=== PATIENT | female | born 1965 | race Caucasian/White ===

== ENCOUNTER 2016-12-27 15:37 | Emergency (ER) | payer BC, OTHER ==
[2016-12-27 15:43] VITALS: BP 175/86; PULSE 82; RESP 18; TEMP 97.5
[2016-12-27] MEDS ORDERED: DIPH,PERTUS(ACELL)TETVAC-LF 0.5 ML VIAL IM ONE (16:12)
--- NOTE | 2016-12-27 16:15 | ED ---
General Adult HPI - General Chief complaint: Eye Problems Stated complaint: IHS/ Eye Problem Time Seen by Provider: 12/27/16 15:51 Source: patient, RN notes reviewed Mode of arrival: ambulatory - History of Present Illness Initial comments: Patient 51-year-old female who presents emergency room today with chief complaint of increased irritation and foreign body sensation to the left eye times one day. Does admit that she was at work yesterday when she states she believes she got something in her eye. 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 Denies any specific injury or trauma but states she did go to the bathroom to wash out. States she did feel better. She is still feeling a little irritating the upper lip. Patient denies any other complaints associated symptoms. Patient denies any recent fever, chills, shortness of breath, chest pain, back pain, abdominal pain, nausea or vomiting, numbness or tingling, dysuria or hematuria, constipation or diarrhea, headaches or visual changes, or any other complaints. - Related Data Previous Rx's Medication Instructions Recorded Tobramycin 0.3% Ophth Soln [Tobrex 1 - 2 drop LEFT EYE QID 7 Days 12/27/16 0.3% Ophth Soln] Allergies Allergy/AdvReac Type Severity Reaction Status Date / Time No Known Allergies Allergy Verified 12/27/16 15:43 Review of Systems ROS Statement: Those systems with pertinent positive or pertinent negative responses have been documented in the HPI. ROS Other: All systems not noted in ROS Statement are negative. Past Medical History Past Medical History: Coronary Artery Disease (CAD), Hypertension, Myocardial Infarction ([place]) History of Any Multi-Drug Resistant Organisms: None Reported Past Surgical History: Coronary Bypass/CABG Past Psychological History: No Psychological Hx Reported Smoking Status: Current every day smoker Past Alcohol Use History: Occasional Past Drug Use History: None Reported General Exam - General Exam Comments Initial Comments: General: The patient is awake and alert, in no distress, and does not appear acutely ill. Eye: Pupils are equal, round and reactive to light, extra-ocular movements are intact. No nystagmus. There is normal conjunctiva bilaterally. No signs of icterus. Ears, nose, mouth and throat: There are moist mucous membranes and no oral lesions. Neck: The neck is supple, there is no tenderness or JVD. Cardiovascular: There is a regular rate and rhythm. No murmur, rub or gallop is appreciated. Respiratory: Lungs are clear to auscultation, respirations are non-labored, breath sounds are equal. No wheezes, stridor, rales, or rhonchi. Musculoskeletal: Normal ROM, no tenderness. Strength 5/5. Sensation intact. Pulses equal bilaterally 2+. Neurological: A&O x 3. CN II-XII intact, There are no obvious motor or sensory deficits. Coordination appears grossly intact. Speech is normal. Skin: Skin is warm and dry and no rashes or lesions are noted. Psychiatric: Cooperative, appropriate mood & affect, normal judgment. Course Vital Signs 12/27/16 15:39 Temperature 97.5 F L Pulse Rate 82 Respiratory 18 Rate Blood Pressure 175/86 O2 Sat by Pulse 99 Oximetry Procedures - Procedures Initial comment: Patient's left eye anesthetized locally with proparacaine. This did relieve her symptoms. Patient's left eye was stained and checked underneath [place] lamp revealing small corneal abrasion the upper [place]. Lids inverted no foreign bodies appreciated. Lids were swept with cotton tip. Medical Decision Making - Medical Decision Making Patient's will be started on antibiotic drops. Advised follow-up with ophthalmology over the next 2 days symptoms persist. Patient's tetanus updated here in the emergency room. Disposition Clinical Impression: Corneal abrasion Disposition: HOME SELF-CARE Condition: Good Instructions: Corneal Abrasion (ED) Additional Instructions: Please use medication as discussed. Please follow-up with family doctor in the next 2 days of symptoms have not improved. Please return to emergency room if the symptoms increase or worsen or for any other concerns. Prescriptions: Tobramycin 0.3% Ophth Soln [Tobrex 0.3% Ophth Soln] 1 - 2 drop LEFT EYE QID 7 Days Referrals: None,Stated [Primary Care Provider] - 1-2 days Anton Galarza MD [STAFF PHYSICIAN] - 1-2 days Time of Disposition: 16:14
== END 2016-12-27 16:33 | disposition home or self-care (01) ==
LOC: EC 15:37
DX: S05.02XA Injury of conjunctiva and corneal abrasion without foreign body, left eye, initial encounter (principal); F17.200 Nicotine dependence, unspecified, uncomplicated; Z23 Encounter for immunization; X58.XXXA Exposure to other specified factors, initial encounter; Y99.0 Civilian activity done for income or pay
CPT/HCPCS: 90471; 90715; 99283

== ENCOUNTER 2017-06-02 15:46 | Emergency (ER) | payer BC, OTHER ==
--- NOTE | 2017-06-02 17:33 | XR ---
EXAMINATION TYPE: XR ribs LT w pa chest xray DATE OF EXAM: 06/02/2017 COMPARISON: 11/19/2010 HISTORY: Fell one day ago. Chest pain. TECHNIQUE: 5 views FINDINGS: Heart and mediastinum are normal. There are sternal wires. Lungs are clear of infiltrate. T here is no sign of pleural effusion or pneumothorax. There is nondisplaced fracture of the lateral le ft ninth rib. There is fracture of the anterior end of the left eighth rib. IMPRESSION: Acute fracture left ninth rib. No cardiopulmonary disease. Fracture anterior tip of left eighth rib.
[2017-06-02] MEDS ORDERED: ACET/COD 300 MG/30 MG STARTER PACK 6 TAB BTL PO STA (17:41)
--- NOTE | 2017-06-02 17:46 | ED ---
Chest Pain HPI - General Chief Complaint: Chest Pain Stated Complaint: Rib Pain Time Seen by Provider: 06/02/17 16:59 Source: patient, RN notes reviewed, old records reviewed Mode of arrival: ambulatory Limitations: no limitations - History of Present Illness Initial Comments: This is a 52-year-old female presenting to the emergency departmentWith a chief complaint of left sided rib pain.Patient reports that she tripped in the middle of the night. She reports she landed on her dresser.Patient is concerned she has fractured ribs. She reports that she has some bruising over the leftSide of her rib cage.She denies any shortness of breath.She reports thatShe does have history of open heart surgery.She denies anyAbdominal pain, Blood in her urine, Diarrhea orConstipation, or headache. - Related Data Home Medications Medication Instructions Recorded Confirmed Aspirin EC [Ecotrin Low Dose] 81 mg PO DAILY 06/02/17 06/02/17 Previous Rx's Medication Instructions Recorded HYDROcodone/APAP 5-325MG [[place] 1 tab PO Q6HR PRN #15 tab 06/02/17 5-325] Allergies Allergy/AdvReac Type Severity Reaction Status Date / Time No Known Allergies Allergy Verified 06/02/17 17:02 Review of Systems ROS Statement: Those systems with pertinent positive or pertinent negative responses have been documented in the HPI. ROS Other: All systems not noted in ROS Statement are negative. Past Medical History Past Medical History: Coronary Artery Disease (CAD), Hypertension, Myocardial Infarction ([place]) History of Any Multi-Drug Resistant Organisms: None Reported Past Surgical History: Coronary Bypass/CABG Past Psychological History: No Psychological Hx Reported Smoking Status: Current every day smoker Past Alcohol Use History: Occasional Past Drug Use History: None Reported General Exam - General Exam Comments Initial Comments: Well appearing 52 year old female, no acute distress. Limitations: no limitations General appearance: alert, in no apparent distress Head exam: Present: atraumatic, normocephalic, normal inspection Eye exam: Present: normal appearance, PERRL, EOMI. Absent: scleral icterus, conjunctival injection, periorbital swelling ENT exam: Present: normal exam, mucous membranes moist Neck exam: Present: normal inspection. Absent: tenderness, meningismus, lymphadenopathy Respiratory exam: Present: chest wall tenderness (left sided rib pain over 7-10 ribs. Significant brusing noted. ). Absent: normal lung sounds bilaterally ( mildly diminished left sided lung sounds ), respiratory distress, wheezes, rales , rhonchi, stridor Cardiovascular Exam: Present: regular rate, normal rhythm, normal heart sounds. Absent: systolic murmur, diastolic murmur, rubs, gallop, clicks GI/Abdominal exam: Present: soft, normal bowel sounds. Absent: distended, tenderness, guarding, rebound, rigid Extremities exam: Present: normal inspection, full ROM, normal capillary refill. Absent: tenderness, pedal edema, joint swelling, calf tenderness Back exam: Present: normal inspection Neurological exam: Present: alert, oriented X3, CN II-XII intact Psychiatric exam: Present: normal affect, normal mood Skin exam: Present: warm, dry, intact, normal color. Absent: rash Course Vital Signs 06/02/17 06/02/17 15:48 18:12 Temperature 99.1 F 98.2 F Pulse Rate 103 H 75 Respiratory 18 20 Rate Blood Pressure 157/92 140/56 O2 Sat by Pulse 98 99 Oximetry Chest Pain MDM - MDM This is a 52-year-old female presenting to the emergency departmentWith a chief complaint of left sided rib pain.Patient reports that she tripped in the middle of the night. She reports she landed on her dresser.Patient is concerned she has fractured ribs. Patient has large hematoma over left rib cage. Patient CXR and rib xray obtained. There is an Acute fracture of the ninth rib. No cardiomegaly disease. Lungs are clear infiltrate. No sign of pleural fusion abnormal effects. Also evidence of anterior tip of the eighth rib. Paitent was given pain medication and advised on incentive spirometry. Patient agrees to treatment plan and will comply. REturn parameters discussed. Also discussed follow up with PCP. Disposition Clinical Impression: Left rib fracture Disposition: HOME SELF-CARE Condition: Good Instructions: Rib Fracture (ED) Additional Instructions: Patient advised to take pain medication as directed. Return to the emergency department if any alarming signs or symptoms occur. Prescriptions: HYDROcodone/APAP 5-325MG [[place] 5-325] 1 tab PO Q6HR PRN #15 tab PRN Reason: Pain Referrals: None,Stated [Primary Care Provider] - 1-2 days Time of Disposition: 17:48
[2017-06-02 18:13] VITALS: BP 140/56; PULSE 75; RESP 20; TEMP 98.2
== END 2017-06-02 18:12 | disposition home or self-care (01) ==
LOC: EC 15:46
DX: S22.32XA Fracture of one rib, left side, initial encounter for closed fracture (principal); I25.2 Old myocardial infarction; I25.10 Atherosclerotic heart disease of native coronary artery without angina pectoris; F17.200 Nicotine dependence, unspecified, uncomplicated; Z79.82 Long term (current) use of aspirin; W01.190A Fall on same level from slipping, tripping and stumbling with subsequent striking against furniture, initial encounter
CPT/HCPCS: 99284

== ENCOUNTER 2017-12-03 09:01 | Emergency (ER) | payer BC ==
[2017-12-03] MEDS ORDERED: ONDANSETRON 4 MG/2 ML VIAL IVP STA (09:20)
[2017-12-03] MEDS ORDERED: SODIUM CHLORIDE 0.9% 1,000 ML IV STA (09:20)
[2017-12-03 09:32] LABS: Basophils % (A) 1 %; Eosinophils # (A) 0.1 k/uL (0-0.7); Eosinophils % (A) 1 %; HCT 43.2 % (34.0-46.0); HGB 14.6 gm/dL (11.4-16.0); Lymphocytes # (A) 1.5 k/uL (1.0-4.8); Lymphocytes % (A) 18 %; MCH 30.9 pg (25.0-35.0); MCHC 33.8 g/dL (31.0-37.0); MCV 91.4 fL (80.0-100.0); Mean Platelet Volume 7.3; Monocytes # (A) 0.3 k/uL (0-1.0); Monocytes % (A) 4 %; Neutrophils # (A) 6.3 k/uL (1.3-7.7); Neutrophils % (A) 76 %; Platelet Count 253 k/uL (150-450); RBC 4.73 m/uL (3.80-5.40); WBC 8.3 k/uL (3.8-10.6)
--- NOTE | 2017-12-03 09:32 | ED ---
General Adult HPI - General Chief complaint: Nausea/Vomiting/Diarrhea Stated complaint: Vomiting Time Seen by Provider: 12/03/17 09:20 Source: patient, RN notes reviewed Mode of arrival: ambulatory Limitations: no limitations - History of Present Illness Initial comments: Patient's a 52-year-old female who presents emergency room today with chief complaint of symptoms of nausea vomiting over the last 2 days. She does admit that her daughter was diagnosed with influenza recently. She states that she's also had some cough some congestion. Doesn't some sputum production. Patient does admit to some body aches. Patient denies any recent shortness of breath, chest pain, back pain, abdominal pain, nausea or vomiting, numbness or tingling , headaches or visual changes, or any other complaints. - Related Data Home Medications Medication Instructions Recorded Confirmed Aspirin EC [Ecotrin Low Dose] 81 mg PO DAILY 06/02/17 12/03/17 Naproxen Sodium [Aleve] 220 mg PO DAILY PRN 12/03/17 12/03/17 Previous Rx's Medication Instructions Recorded Ondansetron Odt [Zofran ODT] 4 mg PO Q8HR PRN #20 tab 12/03/17 Oseltamivir [Tamiflu] 75 mg PO Q12HR 5 Days cap 12/03/17 Allergies Allergy/AdvReac Type Severity Reaction Status Date / Time No Known Allergies Allergy Verified 12/03/17 09:24 Review of Systems ROS Statement: Those systems with pertinent positive or pertinent negative responses have been documented in the HPI. ROS Other: All systems not noted in ROS Statement are negative. Past Medical History Past Medical History: Coronary Artery Disease (CAD), Hypertension, Myocardial Infarction ([place]) History of Any Multi-Drug Resistant Organisms: None Reported Past Surgical History: Coronary Bypass/CABG Past Psychological History: No Psychological Hx Reported Smoking Status: Current every day smoker Past Alcohol Use History: Occasional Past Drug Use History: None Reported General Exam - General Exam Comments Initial Comments: General: The patient is awake and alert, in no distress, and does not appear acutely ill. Eye: Pupils are equal, round and reactive to light, extra-ocular movements are intact. No nystagmus. There is normal conjunctiva bilaterally. No signs of icterus. Ears, nose, mouth and throat: There are moist mucous membranes and no oral lesions. Neck: The neck is supple, there is no tenderness or JVD. Cardiovascular: There is a regular rate and rhythm. No murmur, rub or gallop is appreciated. Respiratory: Lungs are clear to auscultation, respirations are non-labored, breath sounds are equal. No wheezes, stridor, rales, or rhonchi. Gastrointestinal: Soft, non-distended, non-tender abdomen without masses or organomegaly noted. There is no rebound or guarding present. No CVA tenderness. Bowel sounds are unremarkable. Musculoskeletal: Normal ROM, no tenderness. Strength 5/5. Sensation intact. Pulses equal bilaterally 2+. Neurological: A&O x 3. CN II-XII intact, There are no obvious motor or sensory deficits. Coordination appears grossly intact. Speech is normal. Skin: Skin is warm and dry and no rashes or lesions are noted. Psychiatric: Cooperative, appropriate mood & affect, normal judgment. Limitations: no limitations Course Vital Signs 12/03/17 09:07 Temperature 97 F L Pulse Rate 100 Respiratory 16 Rate Blood Pressure 173/86 O2 Sat by Pulse 100 Oximetry Medical Decision Making - Medical Decision Making Patient reexamined at this time shows no signs of distress. She is resting comfortably in the stretcher. Patient labs been reviewed and are unremarkable. Patient's wishes chest x-ray is negative. Patient does admit that her daughter was recently diagnosed with influenza. Patient symptoms started 2 days ago started on Tamiflu. Also given Zofran for her symptoms of nausea. Denies to follow-up family doctor next 2 days or return here to the emergency room symptoms increase or worsen. Patient states understanding and is in agreement. - Lab Data Result diagrams: 12/03/17 09:25 12/03/17 09:25 Lab Results 12/03/17 12/03/17 Range/Units 09:25 09:25 WBC 8.3 (3.8-10.6) k/uL RBC 4.73 (3.80-5.40) m/uL Hgb 14.6 (11.4-16.0) gm/dL Hct 43.2 (34.0-46.0) % MCV 91.4 (80.0-100.0) fL MCH 30.9 (25.0-35.0) pg MCHC 33.8 (31.0-37.0) g/dL RDW 13.0 (11.5-15.5) % Plt Count 253 (150-450) k/uL Neutrophils % 76 % Lymphocytes % 18 % Monocytes % 4 % Eosinophils % 1 % Basophils % 1 % Neutrophils # 6.3 (1.3-7.7) k/uL Lymphocytes # 1.5 (1.0-4.8) k/uL Monocytes # 0.3 (0-1.0) k/uL Eosinophils # 0.1 (0-0.7) k/uL Basophils # 0.0 (0-0.2) k/uL Sodium 139 (137-145) mmol/L Potassium 4.4 (3.5-5.1) mmol/L Chloride 106 (98-107) mmol/L Carbon Dioxide 21 L (22-30) mmol/L Anion Gap 12 mmol/L BUN 14 (7-17) mg/dL Creatinine 0.77 (0.52-1.04) mg/dL Est GFR (MDRD) Af Amer >60 (>60 ml/min/1.73 sqM) Est GFR (MDRD) Non-Af >60 (>60 ml/min/1.73 sqM) Glucose 111 H (74-99) mg/dL Calcium 10.0 (8.4-10.2) mg/dL Total Bilirubin 0.4 (0.2-1.3) mg/dL AST 21 (14-36) U/L ALT 35 (9-52) U/L Alkaline Phosphatase 118 (38-126) U/L Total Protein 6.9 (6.3-8.2) g/dL Albumin 4.2 (3.5-5.0) g/dL Disposition Clinical Impression: Nausea & vomiting, Influenza Disposition: HOME SELF-CARE Condition: Good Instructions: Acute Nausea and Vomiting (ED) Additional Instructions: Please use medication as discussed. Please follow-up with family doctor in the next 2 days of symptoms have not improved. Please return to emergency room if the symptoms increase or worsen or for any other concerns. Prescriptions: Ondansetron Odt [Zofran ODT] 4 mg PO Q8HR PRN #20 tab PRN Reason: Nausea Oseltamivir [Tamiflu] 75 mg PO Q12HR 5 Days cap Referrals: None,Stated [Primary Care Provider] - 1-2 days Time of Disposition: 10:25
[2017-12-03 09:43] LABS: ALT 35 U/L (9-52); AST 21 U/L (14-36); Albumin 4.2 g/dL (3.5-5.0); Alkaline Phosphatase 118 U/L (38-126); Anion Gap 12 mmol/L; Blood Urea Nitrogen 14 mg/dL (7-17); Carbon Dioxide 21 mmol/L (22-30); Chloride 106 mmol/L (98-107); Glucose 111 mg/dL (74-99); Potassium 4.4 mmol/L (3.5-5.1); Sodium 139 mmol/L (137-145); Total Bilirubin 0.4 mg/dL (0.2-1.3); Total Protein 6.9 g/dL (6.3-8.2)
--- NOTE | 2017-12-03 10:11 | XR ---
EXAMINATION TYPE: XR chest 2V DATE OF EXAM: 12/03/2017 COMPARISON: Prior chest x-ray 06/02/2017 HISTORY: Cough, nausea and vomiting and headache TECHNIQUE: Frontal and lateral views of the chest are obtained. FINDINGS: There is no focal air space opacity, pleural effusion, or pneumothorax seen. The cardiac silhouette size is within normal limits. There is bronchial wall thickening. Patient is post median sternotomy. Apical thickening is stable. Prominent lung volumes may be indicative of COPD. The osseo us structures are intact. IMPRESSION: Correlate for bronchitis, reactive airways disease. Follow-up as indicated.
[2017-12-03 10:39] VITALS: BP 170/80; PULSE 86; RESP 18; TEMP 97
== END 2017-12-03 10:38 | disposition home or self-care (01) ==
LOC: EC 09:01
DX: R11.2 Nausea with vomiting, unspecified (principal); J11.1 Influenza due to unidentified influenza virus with other respiratory manifestations; F17.200 Nicotine dependence, unspecified, uncomplicated; Z79.82 Long term (current) use of aspirin
CPT/HCPCS: 36415; 80053; 85025; 71046; 99284; 96374; 96361; J2405

== ENCOUNTER 2019-09-02 01:38 | Emergency (ER) | payer OTHER ==
[2019-09-02] MEDS ORDERED: IBUPROFEN 600 MG TAB PO STA (01:51)
[2019-09-02] MEDS ORDERED: ACETAMINOPHEN TAB 500 MG TAB PO STA (01:51)
--- NOTE | 2019-09-02 02:02 | ED ---
Lower Extremity Injury HPI - General Chief Complaint: Extremity Injury, Lower Stated Complaint: L knee injury Time Seen by Provider: 09/02/19 01:40 Source: patient Mode of arrival: EMS Limitations: no limitations - History of Present Illness Initial Comments: 54 year-old female patient presents to the emergency department for evaluation of left knee injury. Patient states at around 0045 she tripped over a hose and fell landing on the left knee. States that she has been having pain with ambulation since. She denies numbness or tinlging to the leg. Patient denies hitting her head or losing consciousness. Denies any other injuries. Patient denies any headache, neck pain, back pain, chest pain, shortness of breath, dizziness, weakness, abdominal pain, nausea, vomiting, or difficulties with bowel movements or urination. - Related Data Previous Rx's Medication Instructions Recorded Ibuprofen [Motrin] 600 mg PO Q8HR PRN #30 tab 09/02/19 Allergies Allergy/AdvReac Type Severity Reaction Status Date / Time No Known Allergies Allergy Verified 12/03/17 09:24 Review of Systems ROS Statement: Those systems with pertinent positive or pertinent negative responses have been documented in the HPI. ROS Other: All systems not noted in ROS Statement are negative. Past Medical History Past Medical History: Coronary Artery Disease (CAD), Hypertension, Myocardial Infarction ([place]) History of Any Multi-Drug Resistant Organisms: None Reported Past Surgical History: Coronary Bypass/CABG Past Psychological History: No Psychological Hx Reported Smoking Status: Current every day smoker Past Alcohol Use History: None Reported Past Drug Use History: None Reported General Exam Limitations: no limitations General appearance: alert, in no apparent distress, other (Physical well- developed, well-nourished adult female patient in no acute distress. Vital signs upon presentation are temperature 97.9F, pulse 86, respirations 20, blood pressure 147/85, pulse ox 99% on room air.) Eye exam: Present: normal appearance, PERRL, EOMI. Absent: scleral icterus, conjunctival injection, periorbital swelling ENT exam: Present: normal exam, normal oropharynx, mucous membranes moist Neck exam: Present: normal inspection, full ROM, other (Nontender, no step-off, no deformity to firm midline palpation of the posterior cervical spine. Full range of motion without pain or limitation.). Absent: tenderness, meningismus, lymphadenopathy Respiratory exam: Present: normal lung sounds bilaterally. Absent: respiratory distress, wheezes, rales, rhonchi, stridor Cardiovascular Exam: Present: regular rate, normal rhythm, normal heart sounds. Absent: systolic murmur, diastolic murmur, rubs, gallop, clicks GI/Abdominal exam: Present: soft, normal bowel sounds. Absent: distended, tenderness, guarding, rebound, rigid Extremities exam: Present: full ROM, tenderness (Left anterior knee), normal capillary refill, other (Soft tissue swelling left anterior). Absent: normal inspection, pedal edema, joint swelling, calf tenderness Back exam: Present: normal inspection, other (Nontender, no step-off, no deformity to firm midline palpation of the thoracic and lumbar vertebrae. Full range of motion without pain or limitation.). Absent: vertebral tenderness Neurological exam: Present: alert, oriented X3, CN II-XII intact Psychiatric exam: Present: normal affect, normal mood Skin exam: Present: warm, dry, intact, normal color. Absent: rash Course Vital Signs 09/02/19 01:41 Temperature 97.9 F Pulse Rate 86 Respiratory 20 Rate Blood Pressure 147/85 O2 Sat by Pulse 99 Oximetry Medical Decision Making - Medical Decision Making 54-year-old female patient presented to the emergency department today for evaluation after experiencing a trip and fall accident at work. She is reporting left knee pain with increased pain with ambulation and movement. Physical examination did reveal some tenderness over the anterior knee and soft tissue swelling. X-ray was obtained and did reveal a comminuted nondisplaced fracture of the left patella. Patient is placed in a knee immobilizer. She is instructed to follow-up with rail specialist for further evaluation as soon as possible. She is given prescription for crutches and instructed to remain nonweightbearing. Return parameters were discussed in detail. She verbalizes understanding and agrees with this plan. - Radiology Data Radiology results: report reviewed, image reviewed 3 views of the left knee are obtained. Report was reviewed in its entirety. Impression by Dr. Sandoval shows comminuted fracture of the patella without significant displacement. Disposition Clinical Impression: Left patella fracture Disposition: HOME SELF-CARE Condition: Good Instructions (If sedation given, give patient instructions): Patellar Fracture (ED), Knee Immobilizer (ED) Additional Instructions: Knee immobilizer during ambulation. At rest apply ice to the knee 20 with a timely 4 times daily. Remain nonweightbearing until follow-up with orthopedic specialty. Follow-up as soon as possible with rail specialist. Return to the emergency department immediately for any new, worsening, or concerning symptoms. Prescriptions: Ibuprofen [Motrin] 600 mg PO Q8HR PRN #30 tab PRN Reason: Pain Is patient prescribed a controlled substance at d/c from ED?: No Referrals: Honorio Benson MD [STAFF PHYSICIAN] - 1-2 days Time of Disposition: 03:10
--- NOTE | 2019-09-02 03:04 | XR ---
EXAMINATION TYPE: XR knee complete LT DATE OF EXAM: 09/02/2019 COMPARISON: NONE HISTORY: Knee pain injury TECHNIQUE: 3 views. There is comminuted transverse fracture through the body of the patella. There is knee joint effusion . There is separation of the fragments up to 5 mm. The knee joint spaces are fairly normal. IMPRESSION: Comminuted fracture of the patella without significant displacement.
[2019-09-02] MEDS ORDERED: ACET/COD 300 MG/30 MG STARTER PACK 6 TAB BTL PO STA (03:09)
[2019-09-02 03:25] VITALS: BP 137/93; PULSE 81; RESP 18; TEMP 98.1
== END 2019-09-02 03:41 | disposition home or self-care (01) ==
LOC: EC 01:38
DX: S82.045A Nondisplaced comminuted fracture of left patella, initial encounter for closed fracture (principal); I25.10 Atherosclerotic heart disease of native coronary artery without angina pectoris; I25.2 Old myocardial infarction; F17.200 Nicotine dependence, unspecified, uncomplicated; Z95.1 Presence of aortocoronary bypass graft; W01.0XXA Fall on same level from slipping, tripping and stumbling without subsequent striking against object, initial encounter; Y92.69 Other specified industrial and construction area as the place of occurrence of the external cause; Y99.0 Civilian activity done for income or pay
CPT/HCPCS: 99284

== ENCOUNTER 2019-09-06 14:28 | Day surgery (SDC) | payer OTHER ==
--- NOTE | 2019-09-05 11:52 | HP ---
HISTORY AND PHYSICAL REASON FOR ADMISSION: Surgery scheduled 09/06/2019. HISTORY OF PRESENT ILLNESS: Zina Barnett is a 54-year-old patient seen with a comminuted displaced left patella fracture. I recommended open reduction, internal fixation. I reviewed the procedure, risks, complications, benefits, recovery. She was agreeable. Consent was obtained. PAST MEDICAL HISTORY: Noncontributory. PAST SURGICAL HISTORY: Cardiac bypass surgery. DAILY MEDICATIONS: Aspirin. ALLERGIES: None. SOCIAL HISTORY: Smokes 1 pack of cigarettes daily. PHYSICAL EXAMINATION: Evaluation of the left knee: She has limited range of motion. Moderate effusion. Diffuse tenderness along the patella area. No open wounds. Iftikhar, Homans are negative. Distal neurovascular exam is intact. RADIOGRAPHS: Radiographs of the left knee revealed a comminuted displaced patella fracture. IMPRESSION: Left knee displaced comminuted patella fracture. PLAN: Open reduction, internal fixation left knee patella fracture. Surgery 09/06/2019. MMODL / IJN: [id number] /
[2019-09-06] MEDS: LACTATED RINGERS 1,000 ML IV ONE ×2 (15:15→21:37)
[2019-09-06] MEDS ORDERED: LIDOCAINE 1% 20 ML VIAL (10MG/ML) FOR IV START INTRADERMA ONE (15:15)
[2019-09-06] MEDS ORDERED: PROPOFOL 10 MG/ML 20 ML VIAL IV ONE (15:16)
[2019-09-06] MEDS ORDERED: LIDOCAINE 1% INJ 10MG/ML (20 ML MDV) ONE (15:16)
[2019-09-06] MEDS ORDERED: HYDROmorphone (PF) 1 MG/ML ONE (15:16)
[2019-09-06] MEDS ORDERED: ONDANSETRON 4 MG/2 ML VIAL IVP ONE (15:16)
[2019-09-06] MEDS ORDERED: DEXAMETHASONE SOD PHOSPHATE 10 MG/ML 1 ML VIAL IV ONE (15:16)
[2019-09-06] MEDS ORDERED: MIDAZOLAM 2 MG/2 ML VIAL ONE (15:16)
[2019-09-06] MEDS ORDERED: ePHEDrine SULFATE/0.9% NACL/PF 50 MG/5 ML SYRINGE IV ONE (15:16)
[2019-09-06] MEDS ORDERED: fentaNYL (PF) 50 MCG/ML 2 ML AMP ONE (15:16)
[2019-09-06] MEDS ORDERED: LACTATED RINGERS 1,000 ML IV ONE (15:21)
[2019-09-06 15:35] LABS: Basophils % (A) 0 %; Eosinophils # (A) 0.1 k/uL (0-0.7); Eosinophils % (A) 2 %; HCT 38.4 % (34.0-46.0); HGB 13.2 gm/dL (11.4-16.0); Lymphocytes # (A) 2.4 k/uL (1.0-4.8); Lymphocytes % (A) 35 %; MCH 30.4 pg (25.0-35.0); MCHC 34.3 g/dL (31.0-37.0); MCV 88.7 fL (80.0-100.0); Mean Platelet Volume 6.6; Monocytes # (A) 0.2 k/uL (0-1.0); Monocytes % (A) 3 %; Neutrophils # (A) 3.8 k/uL (1.3-7.7); Neutrophils % (A) 56 %; Platelet Count 268 k/uL (150-450); RBC 4.33 m/uL (3.80-5.40); RDW 12.6 % (11.5-15.5); WBC 6.7 k/uL (3.8-10.6)
[2019-09-06 15:38] LABS: Potassium 4.3 mmol/L (3.5-5.1)
[2019-09-06] MEDS ORDERED: ceFAZolin 1,000 MG in SODIUM CHLORIDE 0.9% 1,000 ML IRRIGATION ONE (15:50)
--- NOTE | 2019-09-06 16:20 | P.OP ---
Date of Procedure: 09/06/19 Preoperative Diagnosis: Displaced left patella fracture Postoperative Diagnosis: Same Procedure(s) Performed: Open reduction and internal fixation left patella fracture Implants: 2 K wires and one 18-gauge cerclage wire Anesthesia: PEDRITO Surgeon: Fortino Guerra Superintendent Transmission #1: Ronnie Smart Estimated Blood Loss (ml): 15 Pathology: none sent Condition: stable Disposition: PACU Indications for Procedure: 54-year-old patient seen with a displaced left knee patella fracture. I recommended open reduction internal fixation. I discussed the procedure, risks, complications and recovery. Patient was agreeable and consent was obtained. Operative Findings: See description of procedure Description of Procedure: The patient was taken to the operative suite. Patient underwent a general anesthetic by the department of anesthesia. The patient received preoperative IV antibiotics. A well-padded tourniquet was placed proximal left thigh. The left lower extremity was prepped and draped in the normal sterile orthopedic fashion. The extremity was elevated and tourniquet insufflated to 300. I made a standard anterior midline incision sharply through skin. Dissection was taken to the patella. There was an obvious displaced fracture. Hematoma was evacuated. Hemarthrosis was evacuated. The wound was irrigated as was the joint. The fracture was now reduced. 2 K wires were placed through the patella perpendicular to the fracture site. I now placed 18-gauge cerclage wire and performed a standard tension band wiring technique. C-arm brought in the operative field confirming adequate positioning of the hardware and adequate alignment of her fracture. I now clipped the ends of the K wires bent them and buried them and soft tissue as well as clipping the tension band cerclage wire and bearing that end and soft tissue. I brought the C-arm back into the operative field confirming adequate positioning of the hardware and good alignment of the fracture. Spot films repair document this. The wound was again copiously irrigated. The soft tissues were repaired with #1 Vicryl. The subcu soft tissues repair with 2-0 Vicryl. The skin is proximal skin rene. The tourniquet was released and immediate capillary refill noted. Sterile dressings were applied. Sterile web roll was applied. The extremity was placed into a knee immobilizer. Patient was now awakened, transferred to a bed and recovery stable condition. Koby BERNSTEIN assisted with this procedure.
[2019-09-06] MEDS ORDERED: HYDROmorphone 0.5 MG/0.5 ML SYRINGE IVP PRN (16:22)
[2019-09-06] MEDS ORDERED: traMADol 50 MG TAB PO PRN (16:22)
[2019-09-06] MEDS ORDERED: HYDROcodone/APAP 5-325MG 1 EACH TAB PO PRN ×2 (16:22)
[2019-09-06] MEDS ORDERED: NALOXONE 0.4 MG/ML 1 ML VIAL IV PRN (16:22)
[2019-09-06] MEDS ORDERED: ACETAMINOPHEN TAB 325 MG TAB PO PRN (16:22)
[2019-09-06] MEDS: HYDROmorphone 1 MG/ML 1 ML SYRINGE IVP ONE ×2 (16:44→16:51)
[2019-09-06] MEDS: fentaNYL (PF) 50 MCG/ML 2 ML AMP IVP ONE ×2 (17:02→17:11)
[2019-09-06] MEDS ORDERED: ROPIVACAINE 5MG/ML 20ML VIAL MISCELLANE ONE (17:15)
--- NOTE | 2019-09-06 18:21 | P.ANPRN ---
Procedure Note - Anesthesia - Nerve Block Performed Left Adductor Canal Single Time Out Performed: Yes Date of Procedure: 09/06/19 Procedure Start Time: 17:10 Procedure Stop Time: 17:16 Location of Patient Procedure: PACU Indication: Acute Post-Operative Pain, Requested by Surgeon Specifically requested for management of pain by DrGer: Fortino Guerra Preparation: Sterile Prep Position: Supine Catheter: None Needle Types: Pajunk Needle Gauge: 20 Ultrasound used to visualize needle placement: Yes Ultrasound used to observe medication spread: Yes Injectate: 0.5% Ropivacaine (see comment for volume) (20 cc) Blood Aspirated: No Pain Paresthesia on Injection Noted: No Resistance on Injection: Normal Image Stored and Saved: Yes Events: Uneventful and Well Tolerated
--- NOTE | 2019-09-06 18:53 | XR ---
EXAMINATION TYPE: XR knee limited LT DATE OF EXAM: 09/06/2019 COMPARISON: NONE TECHNIQUE: Two views submitted HISTORY: Post op FINDINGS: There is postsurgical change in near anatomic alignment. There is soft tissue edema and emphysema. IMPRESSION: 1. Postoperative change. Appears in near-anatomic alignment
[2019-09-06 19:35] VITALS: RESP 18
[2019-09-07 05:00] VITALS: BMI 22.8
[2019-09-07] MEDS ORDERED: ENOXAPARIN 40 MG/0.4 ML SYRINGE SQ SCH (05:00)
--- NOTE | 2019-09-07 08:38 | FL ---
Fluoroscopy HISTORY: Pain 3 seconds fluoroscopy time supplied to the referring clinician. 2 intraoperative C-arm images docume nt the procedure. See dictated report from orthopedic surgery.
--- NOTE | 2019-09-07 13:00 | P.PN ---
Subjective Progress Note Date: 09/07/19 Principal diagnosis: Status post ORIF left patella fracture Patient evaluated at bedside, she is resting comfortably. She has no acute pain. She's been utilizing the crutches and knee immobilizer. Objective - Vital Signs Vital signs: Vital Signs Temp 98 F 09/07/19 04:30 Pulse 99 09/07/19 04:30 Resp 18 09/07/19 07:41 BP 131/81 09/07/19 04:30 Pulse Ox 98 09/07/19 04:30 Intake & Output 09/06/19 09/07/19 09/07/19 18:59 06:59 18:59 Intake Total 851 400 Output Total 15 600 Balance 836 -200 Weight 56.699 kg Intake: IV 851 Oral 400 Output: Urine 600 Estimated Blood Loss 15 Other: # Voids 3 - Exam Left lower extremity: Postoperative drainage removed, rene are all in good position and condition. Incision is clean, dry and intact. Distal neurovascular exam is intact - Labs CBC & Chem 7: 09/06/19 15:15 09/06/19 15:15 Assessment and Plan Plan: Assessment: Postoperative day #1 status post ORIF left patellar fracture Plan: Pain control, we'll discharge home on oral medication GI and DVT prophylaxis, aspirin 81 mg twice a day Wound care instructions discussed She'll remain nonweightbearing and utilizing the immobilizer at all times Plan for follow-up in 2 weeks Time with Patient: Less than 30
--- NOTE | 2019-09-07 13:08 | P.DS ---
Providers Date of admission: 09/06/2019 Expected date of discharge: 09/07/19 Attending physician: Fortino Guerra Primary care physician: Stated None Hospital Course: Date of admission: 09/06/2019 Date of discharge: 09/07/2019 Admission diagnosis: Status post ORIF left patella fracture Discharge diagnosis: Same Attending physician: Dr. Guerra Surgical procedures: ORIF left patella fracture Brief history: Patient is a 54-year-old female who was evaluated in the outpatient setting by Dr. Guerra her injury to her left knee. It was determined she would need surgical fixation for a displaced left patella fracture. She was scheduled for surgery on 09/06/2019. Hospital course: Details of patient's surgery can be found in operative report. Patient tolerated the procedure well and was subsequently transported to orthopedic floor. Patient's orthopeidc and medical care was provided daily. Patient had daily laboratory tests performed for evaluation of overall blood counts. Patient had daily physical therapy to include strengthening range of motion as well as education with walker ambulation. Patient was treated with Lovenox for their postoperative DVT prophylaxis during their inpatient stay. Patient was noted to have a relatively uneventful postoperative course. Patient reported satisfactory pain control with oral pain medications by postoperative day 0. Patient showed satisfactory progress with physical therapy. Patient moved steadily through the program and had no difficulty meeting the goals by postoperative day 1. Given patient's otherwise satisfactory course and having met physical therapy goals, plan is to discharge patient home on postoperative day 1. Discharge condition/disposition: Patient will be discharged home in stable condition. Discharge medications: Instructions are given on resumption of patient's normal daily medications per primary care recommendation, in addition patient will be prescribed [place] 5 mg/325 mg, aspirin 81 mg. Discharge instructions: 1. Wound care and infection precautions, keep incision dry and covered while showering, no lotions, creams, moisturizers. No soaking, tubs, pools, hottubs. Do not scrub over the incision. 2. Nonweightbearing left lower extremity, utilizing the immobilizer at all times 3. Ice and elevate when necessary. Do not exceed 20 minutes per hour with ice pack. 4. Utilize compression sleeve until seen at first follow up appointment. 5. Pain meds and anticoagulants per prescription. 6. Pain medication has potential to cause constipation. Increase oral fluid and fiber intake. Contact primary care provider if you have not had a bowel movement within 48 hours after discharge 7. No anti-inflammatory medication until discussed at first post operative visit, this including Motrin, Aleve, Mobic, Diclofenac 8. Follow up in office at 2 weeks postop with Koby Smart PA-C 9. Follow up with your primary care doctor 7-10 days after discharge. 10. Contact [facility] with any questions, . Procedures: Open reduction internal fixation left patella fracture Patient Condition at Discharge: Good Plan - Discharge Summary Discharge Rx Participant: No New Discharge Prescriptions: New Aspirin [Adult Low Dose Aspirin EC] 81 mg PO BID #30 tablet. Hydrocodone/Acetaminophen [[place] 5-325] 1 each PO Q6HR PRN #28 tab PRN Reason: Pain No Action HYDROcodone/APAP 5-325MG [[place] 5-325] 1 tab PO DIRECTED PRN PRN Reason: Pain Discharge Medication List HYDROcodone/APAP 5-325MG [[place] 5-325] 1 tab PO DIRECTED PRN 09/03/19 [History] Aspirin [Adult Low Dose Aspirin EC] 81 mg PO BID #30 tablet. 09/07/19 [Rx] Hydrocodone/Acetaminophen [[place] 5-325] 1 each PO Q6HR PRN #28 tab 09/07/19 [Rx] Follow up Appointment(s)/Referral(s): [facility] Visiting Nurse, [NON-STAFF] - Ronnie Smart, PAC [PHYSICIAN STAFF PSYCHIATRIST] - 2 Weeks Activity/Diet/Wound Care/Special Instructions: Orthopedic discharge instructions: 1. Pain medication as needed 2. Aspirin 81 mg twice a day 3. Keep incision dry and covered while showering 4. Nonweightbearing, utilize crutches or walker 5. Keep the immobilizer on while ambulating 6. Follow-up [facility] in 2 weeks Discharge Disposition: HOME SELF-CARE
[2019-09-07 14:13] VITALS: BP 142/78; PULSE 111; TEMP 98.1
== END 2019-09-07 16:15 | disposition home health service (06) ==
LOC: OR 14:28 → 4MS4W 18:31 → OR 09-07 16:15
PROVIDERS: ATTEND Orthopaedic Surgery
DX: S82.042A Displaced comminuted fracture of left patella, initial encounter for closed fracture (principal); Z95.1 Presence of aortocoronary bypass graft; Z79.82 Long term (current) use of aspirin; F17.210 Nicotine dependence, cigarettes, uncomplicated; I25.2 Old myocardial infarction; Z79.891 Long term (current) use of opiate analgesic
CPT/HCPCS: 97162; 80051; 85025; 73560; 27524; C1713; J2250; J1100; J0690 ×2; J2405; J2001; J1650; J3010; J1170 ×2; J2704; J2795

== ENCOUNTER → 2020-06-30 | Outpatient (CLI) | payer BC, OTHER ==
--- NOTE | 2020-07-01 14:44 | CT ---
EXAMINATION TYPE: CT knee LT wo con DATE OF EXAM: 06/30/2020 COMPARISON: None HISTORY: knee pain post surgery CT DLP: 440.4 mGycm Automated exposure control for dose reduction was used. Her graft technique: Axial images 3 mm thick sections. Reconstructed images in the coronal and sagittal plane. Three-D reconstructed images are fi lmed and presented on a separate computer by the technologist. FINDINGS: Patellar fracture repair is evident. Fracture lines appear fused. Minimal joint effusion may be prese nt. No acute fractures are evident. Joint spaces appear preserved. IMPRESSION: APPEARS TO BE PRIOR REPAIR OF THE PATELLA WITH HEALING. SMALL JOINT EFFUSION MAY BE PRESENT. THE ACUT E OSSEOUS ABNORMALITY IS NOT IDENTIFIED.
== END | disposition home or self-care (01) ==
LOC: RADCTMAIN 12:29
PROVIDERS: ATTEND Orthopaedic Surgery
DX: M25.562 Pain in left knee (principal); S82.002A Unspecified fracture of left patella, initial encounter for closed fracture

== ENCOUNTER → 2020-07-21 | Outpatient (CLI) | payer BC ==
[2020-07-21 13:06] LABS: HCT 44.8 % (34.0-46.0); HGB 14.7 gm/dL (11.4-16.0); MCH 29.2 pg (25.0-35.0); MCHC 32.7 g/dL (31.0-37.0); MCV 89.2 fL (80.0-100.0); Mean Platelet Volume 8.1; Platelet Count 280 k/uL (150-450); RBC 5.03 m/uL (3.80-5.40); RDW 13.3 % (11.5-15.5); WBC 8.9 k/uL (3.8-10.6)
[2020-07-21 19:20] LABS: Anion Gap 6.4 mmol/L (4.00-12.00); BUN/Creat Ratio 15.71 Ratio (12.00-20.00); Calcium 9.5 mg/dL (8.7-10.3); Carbon Dioxide 25.6 mmol/L (21.6-31.8); Non-African American GFR(CKD) 97.5 (60.0-200.0); Potassium 4.7 mmol/L (3.5-5.5)
[2020-07-22 02:15] LABS: INR <0.90 (0.90-1.11); Partial Thromboplastin Time 25.5 sec (24.7-29.9); Prothrombin Time <9.9 sec (9.9-11.9)
== END | disposition home or self-care (01) ==
LOC: LABWHC1 11:59
PROVIDERS: ATTEND Orthopaedic Surgery
DX: M25.562 Pain in left knee (principal)
CPT/HCPCS: 36415; 80048; 85027; 85610; 85730

== ENCOUNTER 2024-07-10 12:50 | Emergency (ER) | payer MEDICARE, OTHER ==
[2024-07-10 12:55] VITALS: TEMP 99
--- NOTE | 2024-07-10 13:17 | ED ---
General Adult HPI - General Chief complaint: Headache Stated complaint: Headache, Neck pain Time Seen by Provider: 07/10/24 13:00 Source: patient, RN notes reviewed, old records reviewed Mode of arrival: ambulatory Limitations: no limitations - History of Present Illness Initial comments: 59-year-old female presenting with 3 days of headache which is occipital and left-sided. This is associated with some neck pain and stiffness as well. No injury. Headache was gradual in onset patient has had cough cold symptoms including nasal congestion, cough and fever. This has been consistent over the past several days as well. Ventral chest pain. No abdominal pain. Headache was gradual in onset - Related Data Home Medications Medication Instructions Recorded Confirmed HYDROcodone/APAP 5-325MG [[place] 1 tab PO DIRECTED PRN 09/03/19 09/06/19 5-325] Previous Rx's Medication Instructions Recorded Aspirin [Adult Low Dose Aspirin EC] 81 mg PO BID #30 tablet. 09/07/19 Hydrocodone/Acetaminophen [[place] 1 each PO Q6HR PRN #28 tab 09/07/19 5-325] Allergies Allergy/AdvReac Type Severity Reaction Status Date / Time No Known Allergies Allergy Verified 07/10/24 12:55 Review of Systems ROS Statement: Those systems with pertinent positive or pertinent negative responses have been documented in the HPI. ROS Other: All systems not noted in ROS Statement are negative. 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 Last Myocardial Infarction Date:: 2010 History of Any Multi-Drug Resistant Organisms: None Reported Past Surgical History: Coronary Bypass/CABG Additional Past Surgical History / Comment(s): cyst removed at 16, CABG 2011 Past Anesthesia/Blood Transfusion Reactions: No Reported Reaction Past Psychological History: No Psychological Hx Reported Smoking Status: Never smoker Past Alcohol Use History: None Reported Past Drug Use History: None Reported - Past Family History Mother Family Medical History: No Reported History General Exam Limitations: no limitations General appearance: alert, in no apparent distress Head exam: Present: atraumatic, normocephalic Eye exam: Present: normal appearance, PERRL ENT exam: Present: mucous membranes dry Neck exam: Present: normal inspection. Absent: tenderness, meningismus Respiratory exam: Present: decreased breath sounds. Absent: respiratory distress, wheezes Cardiovascular Exam: Present: normal rhythm, tachycardia GI/Abdominal exam: Present: soft. Absent: distended, tenderness, guarding Extremities exam: Present: normal inspection, normal capillary refill. Absent: pedal edema Neurological exam: Present: alert, oriented X3, CN II-XII intact, other (Normal [id number] bilaterally. Normal [id number], normal neurologic exam.). Absent: motor sensory deficit Psychiatric exam: Present: normal affect, normal mood Skin exam: Present: warm, dry, intact Course Vital Signs 07/10/24 07/10/24 12:50 15:12 Temperature 99 F Pulse Rate 112 H 98 Respiratory 18 17 Rate Blood Pressure 127/88 132/87 O2 Sat by Pulse 99 95 Oximetry Medical Decision Making - Medical Decision Making Was pt. sent in by a medical professional or institution (AMANDEEP Pugh, DIE FORGER, urgent care, hospital, or senior living...) When possible be specific @ -No Did you speak to anyone other than the patient for history (EMS, parent, family, police, friend...)? What history was obtained from this source @ -No Did you review nursing and triage notes (agree or disagree)? Why? @ -I reviewed and agree with nursing and triage notes Were old charts reviewed (outside hosp., previous admission, EMS record, old EKG, old radiological studies, urgent care reports/EKG's, senior living records)? Report findings @ -No old charts were reviewed Differential Headache: Migraine, tension, cluster, carbon monoxide, central venous thrombosis, pension karma temporal arteritis, acute closure glaucoma, intercranial hemorrhage, mastoiditis, sinusitis, head injury, this is not meant to be an all-inclusive list. EKG interpreted by me (3pts min.). @ -As above X-rays interpreted by me (1pt min.). @ -None done CT interpreted by me (1pt min.). @ -CT is negative for intracranial hemorrhage, cervical spine negative for acute process. U/S interpreted by me (1pt. min.). @ -None done What testing was considered but not performed or refused? (CT, X-rays, U/S, labs)? Why? @ -None What meds were considered but not given or refused? Why? @ -None Did you discuss the management of the patient with other professionals (professionals i.e. , PA, DIE FORGER, lab, RT, psych nurse, secondary social studies teacher, digital learning platforms manager, teacher, chief juvenile probation officer, case preparer and liner)? Give summary @ -No Was smoking cessation discussed for >3mins.? @ -No Was critical care preformed (if so, how long)? @ -No Were there social determinants of health that impacted care today? How? (Homelessness, low income, unemployed, alcoholism, drug addiction, transportation, low edu. Level, literacy, decrease access to med. care, custodial, rehab)? @ -No Was there de-escalation of care discussed even if they declined (Discuss DNR or withdrawal of care, Hospice)? DNR status @ -No What co-morbidities impacted this encounter? (DM, HTN, Smoking, COPD, CAD, Cancer, CVA, ARF, Chemo, Hep., AIDS, mental health diagnosis, sleep apnea, morbid obesity)? @ -None Was patient admitted / discharged? Hospital course, mention meds given and route, prescriptions, significant lab abnormalities, going to OR and other pertinent info. @ -59-year-old female presenting with gradual onset headache, left occipital. Patient does have URI symptoms as well. I did perform CT imaging which was negative for acute process. Viral panel was negative. Patient was overall well-appearing. I suspect headache is related to viral illness. Patient is given strict return parameters and will follow closely with her primary care provider. Undiagnosed new problem with uncertain prognosis? @ -No Drug Therapy requiring intensive monitoring for toxicity (Heparin, Nitro, Insulin, Cardizem)? @ -No Were any procedures done? @ -No Diagnosis/symptom? @Headache, upper respiratory infection Acute, or Chronic, or Acute on Chronic? @Acute Uncomplicated (without systemic symptoms) or Complicated (systemic symptoms)? @ -Default Side effects of treatment? @ -No Exacerbation, Progression, or Severe Exacerbation? @ -No Poses a threat to life or bodily function? How? (Chest pain, USA, SC, pneumonia, PE, COPD, DKA, ARF, appy, cholecystitis, CVA, Diverticulitis, Homicidal, Suicidal, threat to staff... and all critical care pts) @ -No - Lab Data Lab Results 07/10/24 Range/Units 11:55 Influenza Type A (PCR) Not Detected (Not Detectd) Influenza Type B (PCR) Not Detected (Not Detectd) RSV (PCR) Not Detected (Not Detectd) SARS-CoV-2 (PCR) Not Detected (Not Detectd) Disposition Clinical Impression: Headache, Viral upper respiratory infection Disposition: HOME SELF-CARE Condition: Fair Instructions (If sedation given, give patient instructions): Acute Headache (ED) Additional Instructions: Return if symptoms worsen or with any new or concerning symptoms. Please follow-up closely with your primary care provider. Is patient prescribed a controlled substance at d/c from ED?: No Referrals: Mehul Sethi MD [Primary Care Provider] - 1-2 days Time of Disposition: 15:05
--- NOTE | 2024-07-10 14:34 | CT ---
EXAMINATION TYPE: CT brain alisha wo con DATE OF EXAM: 07/10/2024 COMPARISON: None HISTORY: Head and neck pain TECHNIQUE: CT scan of the head and cervical spine are performed without contrast. Findings: Head CT: Ventricles, basal cisterns and sulci over convexities within normal limits and there is no mass, mass effect or shift of midline structures. No abnormal density is seen throughout the brain parenchyma and there is no acute intra or extra-axia l hemorrhage. Posterior fossa including the brainstem, fourth ventricle and cerebellar pontine angles are grossly n ormal. The intraorbital contents appear normal and symmetric. Visualized paranasal sinuses are well aerated. CT cervical spine: Craniovertebral junction relationships and prevertebral soft tissues are normal. The cervical vertebral segments are normal in height and alignment and there is no fracture subluxati on. The disc spaces are well-maintained in height and there is no significant degenerative disc disease. The bony cervical canal is widely patent and there is no bony encroachment of the neural foramina. The paraspinal soft tissues unremarkable. IMPRESSION: 1. Head CT: No acute bleed or mass effect. 2. CT cervical spine: No acute trauma. No significant degenerative changes.
[2024-07-10 15:13] VITALS: BP 132/87; PULSE 98; RESP 17
== END 2024-07-10 15:13 | disposition home or self-care (01) ==
LOC: EC 12:50
CPT/HCPCS: 70450; 72125; 87636; 99284